=== PATIENT | female | born 1930 | race Caucasian/White ===

== ENCOUNTER 2017-11-24 10:12 | Inpatient (IN) | payer MEDICARE, OTHER, MEDICAID ==
[2017-11-24] MEDS: Sodium Chloride 0.9% 1,000 ML IV ONE ×2 (10:20→11:11)
[2017-11-24] MEDS ORDERED: Piperacillin/Tazobactam 3.375 GM in Sodium Chloride 0.9% 100 ML IV ONE (11:41)
[2017-11-24 11:50] LABS: CHLORIDE,CL 109 mmol/L (98-107); SODIUM,NA 145 mmol/L (136-145)
[2017-11-24] MEDS ORDERED: Piperacillin/Tazobactam 3.375 GM in Sodium Chloride 0.9% 100 ML IV SCH (13:00)
[2017-11-24] MEDS ORDERED: Sodium Chloride 0.9% 1,000 ML IV SCH (13:15)
[2017-11-24] MEDS ORDERED: Take Home: Albuterol 6.7 GM Inhaler, 1 Inhaler Pack INH PRN (14:07)
[2017-11-24] MEDS ORDERED: Acetaminophen 325 MG Tab PO PRN (14:07)
[2017-11-24] MEDS ORDERED: Albuterol 0.083% 2.5 MG/3 ML Neb Soln NEB PRN (14:32)
--- NOTE | 2017-11-24 15:59 | EDM.PDOC ---
ED HPI GENERAL MEDICAL PROBLEM - General Chief Complaint: Respiratory Problem Stated Complaint: ER Time Seen by Provider: 11/24/17 10:20 Source of Information: Reports: Patient, Fpc Records History Limitations: Reports: Respiratory Distress - History of Present Illness INITIAL COMMENTS - FREE TEXT/NARRATIVE: Pt. has been experiencing respiratory distress over the weekend, with symptoms worsening today. Today, pt. was significantly more short of breath and hypoxic with O2 sats in the 70s. She has also been less responsive today as well. Oral intake of food and fluids has been poor. [facility] contacted Dr. Verdin this morning who advised pt. be brought into the ER for eval. Onset Date: 11/20/17 Duration: Constant. No: Getting Worse Location: Reports: Chest Severity: Severe Improves with: Reports: Rest Associated Symptoms: Reports: Shortness of Breath Treatments MEDICAL RESIDENT: Reports: Cold Therapy - Related Data Allergies Allergy/AdvReac Type Severity Reaction Status Date / Time hydrocodone Allergy Cannot Verified 11/24/17 12:33 Remember ibuprofen Allergy Cannot Verified 11/24/17 12:33 Remember iodine Allergy Cannot Verified 11/24/17 12:33 Remember iron Allergy Cannot Verified 11/24/17 12:33 Remember latex Allergy Itching Verified 11/24/17 12:33 shellfish derived Allergy Cannot Verified 11/24/17 14:56 Remember tramadol Allergy Cannot Verified 11/24/17 12:33 Remember warfarin sodium Allergy Cannot Verified 11/24/17 12:33 [From Coumadin] Remember bitartrate Allergy Cannot Uncoded 05/28/15 14:31 Remember contrast dyd Allergy Cannot Uncoded 05/28/15 14:31 Remember Home Meds: Home Meds Acetaminophen [Tylenol] 650 mg PO BID 05/28/15 [History] Albuterol [Proair HFA] 2 puff IH Q4HR PRN 05/28/15 [History] Bisacodyl [Ducodyl] 5 mg PO DAILY PRN 05/28/15 [History] Calcium Carbonate [Tums] 500 mg PO Q8H PRN 05/28/15 [History] Carbidopa/Levodopa [Carbidopa-Levodopa 25-250] 1 tab PO DAILY 05/28/15 [History] Carbidopa/Levodopa [Carbidopa-Levodopa 25-250] 1.5 tab PO TID 05/28/15 [History] Gabapentin [Neurontin] 200 mg PO DAILY 05/28/15 [History] Gabapentin [Neurontin] 300 mg PO BEDTIME 05/28/15 [History] L.acidoph,Paracasei, B.lactis [Probiotic] 1 cap PO DAILY 05/28/15 [History] Losartan Potassium 100 mg PO DAILY 05/28/15 [History] Metoprolol Tartrate 25 mg PO BID 05/28/15 [History] Potassium Chloride 8 meq PO DAILY 05/28/15 [History] Pramipexole [Mirapex] 0.5 mg PO BEDTIME 05/28/15 [History] Sennosides/Docusate Sodium [Senna S Tablet] 2 tab PO DAILY 05/28/15 [History] amLODIPine [Norvasc] 10 mg PO DAILY 05/28/15 [History] Ondansetron [Zofran ODT] 4 mg PO Q8H PRN 11/20/16 [History] risperiDONE [Risperdal] 0.125 mg PO DAILY 11/20/16 [History] Acetaminophen [Non-Aspirin] 650 mg PO Q4H PRN 11/24/17 [History] Carboxymethyl/Gly/Poly80/Pf [Refresh Optive Advanced Drops] 1 drop EYEBOTH TID 11/24/17 [History] Cholecalciferol (Vitamin D3) [Vitamin D3] 2,000 unit PO DAILY 11/24/17 [History] Cyanocobalamin (Vitamin B-12) [Cyanocobalamin Injection] 1,000 mcg IM Q30D 11/24 [History] Escitalopram Oxalate 10 mg PO DAILY 11/24/17 [History] Furosemide 80 mg PO DAILY 11/24/17 [History] Loperamide [Imodium] 2 mg PO ASDIRECTED 11/24/17 [History] Menthol [Zim's Max-Freeze] 1 applic TOP Q8H PRN 11/24/17 [History] Mirabegron [Myrbetriq] 25 mg PO DAILY 11/24/17 [History] Mirtazapine [Remeron] 15 mg PO BEDTIME 11/24/17 [History] Nystatin 1 applic TOP Q12H PRN 11/24/17 [History] OLANZapine [ZyPREXA] 5 mg PO DAILY 11/24/17 [History] Omeprazole Magnesium [Prilosec Otc] 20 mg PO DAILY 11/24/17 [History] fentaNYL [Duragesic] 12 mcg TRDERM Q72H 11/24/17 [History] Past Medical History HEENT History: Reports: Macular Degeneration Cardiovascular History: Reports: High Cholesterol, Hypertension Respiratory History: Reports: Asthma Gastrointestinal History: Reports: Chronic Constipation Genitourinary History: Reports: Urinary Incontinence, Other (See Below) Other Genitourinary History: urgency Other OB/BYN History: had ovaries removed Musculoskeletal History: Reports: Osteoarthritis, Other (See Below) Other Musculoskeletal History: weakness,restless legs Neurological History: Reports: Parkinson's Psychiatric History: Reports: Anxiety, Dementia, Depression, Psychosis Hematologic History: Reports: B12 Deficiency - Past Surgical History HEENT Surgical History: Reports: None Social & Family History - Tobacco Use Smoking Status *Q: Never Smoker Second Hand Smoke Exposure: No - Recreational Drug Use Recreational Drug Use: No ED ROS GENERAL - Review of Systems Review Of Systems: See Below Constitutional: Reports: Malaise, Fatigue HEENT: Reports: No Symptoms Respiratory: Reports: Shortness of Breath, Wheezing, Cough Cardiovascular: Reports: Dyspnea on Exertion Endocrine: Reports: No Symptoms GI/Abdominal: Reports: No Symptoms : Reports: No Symptoms Musculoskeletal: Reports: No Symptoms Skin: Reports: No Symptoms Neurological: Reports: Weakness Psychiatric: Reports: No Symptoms Hematologic/Lymphatic: Reports: No Symptoms Immunologic: Reports: No Symptoms ED EXAM, GENERAL - Physical Exam Exam: See Below Exam Limited By: No Limitations General Appearance: Alert, Anxious, Moderate Distress Eye Exam: Bilateral Eye: EOMI, Normal Fundi, Normal Inspection Ears: Normal External Exam, Normal Canal Head: Atraumatic, Normocephalic Neck: Normal Inspection, Supple, Non-Tender Respiratory/Chest: Respiratory Distress, Decreased Breath Sounds, Rales, Wheezing Cardiovascular: Normal Peripheral Pulses, Regular Rate, Rhythm Peripheral Pulses: 2+: Radial (L), Radial (R) GI/Abdominal: Normal Bowel Sounds, Soft, Non-Tender, No Organomegaly (Female) Exam: Deferred Rectal (Female) Exam: Deferred Back Exam: Normal Inspection, Full Range of Motion Extremities: Normal Inspection, Normal Range of Motion, Non-Tender, No Pedal Edema, Normal Capillary Refill Neurological: CN II-XII Intact, Confused, Disoriented, Slow to Respond Psychiatric: Normal Affect, Normal Mood Skin Exam: Warm, Dry, Intact, Normal Color Course - Vital Signs Last Recorded V/S: Last Vital Signs Temp 37.9 C 11/24/17 14:18 Pulse 88 11/24/17 14:18 Resp 46 H 11/24/17 14:18 BP 111/54 L 11/24/17 14:18 Pulse Ox 92 L 11/24/17 14:18 - Orders/Labs/Meds Orders: Active Orders 24 hr Category Date Time Status EKG Documentation Completion [RC] STAT Care 11/24/17 10:33 Ordered EKG Documentation Completion [RC] STAT Care 11/24/17 10:34 Ordered Chest 1V Frontal [CR] Stat Exams 11/24/17 10:33 Taken CULTURE BLOOD [BC] Stat Lab 11/24/17 10:50 Received CULTURE BLOOD [BC] Stat Lab 11/24/17 11:05 Received Sodium Chloride 0.9% [Saline Flush] Med 11/24/17 10:34 Active 10 ml FLUSH ASDIRECTED PRN Blood Culture x2 Reflex Set [OM.PC] Stat Oth 11/24/17 10:34 Ordered Peripheral IV Insertion Adult [OM.PC] Routine Oth 11/24/17 10:34 Ordered Medication Orders Acetaminophen (Tylenol) 650 mg PO Q4H PRN PRN Reason: Pain Albuterol (Proventil Neb Soln) 2.5 mg NEB Q4H PRN PRN Reason: Shortness of Breath Artificial Tears (Tears Naturale Free) 1 each EYEBOTH TID BENNETT Carbidopa/Levodopa (Sinemet 25-250 Mg) 1 tab PO DAILY BENNETT Carbidopa/Levodopa (Sinemet 25-250 Mg) 1.5 tab PO TID BENNETT Citalopram Hydrobromide (Celexa) 20 mg PO DAILY BENNETT Sodium Chloride (Normal Saline) 1,000 mls @ 100 mls/hr IV ASDIRECTED BENNETT Piperacillin Sod/Tazobactam (Sod 3.375 gm/ Sodium Chloride) 100 mls @ 25 mls/ hr IV Q8H BENNETT Sodium Chloride (Saline Flush) 10 ml FLUSH ASDIRECTED PRN PRN Reason: Keep Vein Open Labs: Laboratory Tests 11/24/17 11/24/17 11/24/17 Range/Units 10:50 10:50 10:50 WBC 14.5 H (4.0-10.0) x10^3/uL RBC 3.31 L (4.00-5.50) x10^6/uL Hgb 9.9 L (12.0-16.0) g/dL Hct 31.8 L (33.0-47.0) % MCV 96.1 H (78.0-93.0) fL MCH 29.9 (26.0-32.0) pg MCHC 31.1 L (32.0-36.0) g/dL RDW Coeff of Greg 15.0 (10.0-15.0) % Plt Count 272 (130-400) x10^3/uL Add Manual Diff Yes Neutrophils % (Manual) 68 (50-80) % Band Neutrophils % 27 H (0-6) % Atypical Lymphs % 3 H (0) % Monocytes % (Manual) 2 (2-11) % Platelet Estimate Adequate Hypochromasia 1+ slight H Poikilocytosis 1+ slight H Anisocytosis 1+ slight H PT 9.8 (9.8-11.8) SEC INR 0.9 L (2.0-3.5) Sodium 145 (136-145) mmol/L Potassium 4.7 (3.5-5.1) mmol/L Chloride 109 H (98-107) mmol/L Carbon Dioxide 28 (21-32) mmol/L BUN 39 H (7-18) mg/dL Creatinine 1.2 H (0.55-1.02) mg/dL Est Cr Clr Drug Dosing TNP Estimated GFR (MDRD) 43 Glucose 129 H (74-106) mg/dL Lactic Acid (0.4-2.0) mmol/L Calcium 8.1 L (8.5-10.1) mg/dL Corrected Calcium 9.78 (8.5-10.1) mg/dL Phosphorus 4.1 (2.6-4.7) mg/dL Magnesium 2.1 (1.8-2.4) mg/dL Total Bilirubin 0.4 (0.2-1.0) mg/dL AST 13 L (15-37) U/L ALT < 6 L (14-59) U/L Alkaline Phosphatase 86 (46-116) U/L Troponin I Cancelled C-Reactive Protein 51.9 H (<=0.9) mg/dL NT-Pro-B Natriuret Pep 2086 H (<=450) pg/mL Total Protein 6.6 (6.4-8.2) g/dL Albumin 1.9 L (3.4-5.0) g/dL Globulin 4.7 Albumin/Globulin Ratio 0.40 // Range/Units 10:50 WBC (4.0-10.0) x10^3/uL RBC (4.00-5.50) x10^6/uL Hgb (12.0-16.0) g/dL Hct (33.0-47.0) % MCV (78.0-93.0) fL MCH (26.0-32.0) pg MCHC (32.0-36.0) g/dL RDW Coeff of Greg (10.0-15.0) % Plt Count (130-400) x10^3/uL Add Manual Diff Neutrophils % (Manual) (50-80) % Band Neutrophils % (0-6) % Atypical Lymphs % (0) % Monocytes % (Manual) (2-11) % Platelet Estimate Hypochromasia Poikilocytosis Anisocytosis PT (9.8-11.8) SEC INR (2.0-3.5) Sodium (136-145) mmol/L Potassium (3.5-5.1) mmol/L Chloride (98-107) mmol/L Carbon Dioxide (21-32) mmol/L BUN (7-18) mg/dL Creatinine (0.55-1.02) mg/dL Est Cr Clr Drug Dosing Estimated GFR (MDRD) Glucose (74-106) mg/dL Lactic Acid 1.1 (0.4-2.0) mmol/L Calcium (8.5-10.1) mg/dL Corrected Calcium (8.5-10.1) mg/dL Phosphorus (2.6-4.7) mg/dL Magnesium (1.8-2.4) mg/dL Total Bilirubin (0.2-1.0) mg/dL AST (15-37) U/L ALT (14-59) U/L Alkaline Phosphatase (46-116) U/L Troponin I C-Reactive Protein (<=0.9) mg/dL NT-Pro-B Natriuret Pep (<=450) pg/mL Total Protein (6.4-8.2) g/dL Albumin (3.4-5.0) g/dL Globulin Albumin/Globulin Ratio Meds: Medications Generic Name Dose Route Start Last Admin Trade Name Dwight PRN Reason Stop Dose Admin Acetaminophen 650 mg 11/24/17 14:07 Tylenol PO Q4H PRN Pain Albuterol 2.5 mg 11/24/17 14:32 Proventil Neb Soln NEB Q4H PRN Shortness of Breath Artificial Tears 1 each 11/24/17 20:00 Tears Naturale Free EYEBOTH TID BENNETT Carbidopa/Levodopa 1 tab 11/25/17 08:00 Sinemet 25-250 Mg PO DAILY BENNETT Carbidopa/Levodopa 1.5 tab 11/24/17 20:00 Sinemet 25-250 Mg PO TID BENNETT Citalopram Hydrobromide 20 mg 11/25/17 08:00 Celexa PO DAILY BENNETT Sodium Chloride 1,000 mls @ 100 mls/hr 11/24/17 13:15 Normal Saline IV ASDIRECTED BENNETT Piperacillin Sod/Tazobactam 100 mls @ 25 mls/hr 11/24/17 20:00 Sod 3.375 gm/ Sodium Chloride IV Q8H BENNETT Sodium Chloride 10 ml 11/24/17 10:34 Saline Flush FLUSH ASDIRECTED PRN Keep Vein Open Discontinued Medications Generic Name Dose Route Start Last Admin Trade Name Dwight PRN Reason Stop Dose Admin Sodium Chloride 1,000 mls @ 1,000 mls/hr 11/24/17 10:35 11/24/17 11:11 Normal Saline IV 11/24/17 11:34 1,000 mls/hr .BOLUS ONE Administration Piperacillin Sod/Tazobactam 100 mls @ 200 mls/hr 11/24/17 11:41 11/24/17 11: 42 Sod 3.375 gm/ Sodium Chloride IV 11/24/17 12:10 200 mls/hr ONETIME ONE Administration Piperacillin Sod/Tazobactam 100 mls @ 200 mls/hr 11/24/17 13:00 11/24/17 13: 28 Sod 3.375 gm/ Sodium Chloride IV Not Given Q8H BENNETT Departure - Departure Time of Disposition: 11:50 Disposition: Admitted As Inpatient 67 Condition: Undetermined Clinical Impression: Pneumonia - Discharge Information - My Orders Last 24 Hours: My Active Orders 11/24/17 10:33 EKG Documentation Completion [RC] STAT Chest 1V Frontal [CR] Stat 11/24/17 10:34 EKG Documentation Completion [RC] STAT Sodium Chloride 0.9% [Saline Flush] 10 ml FLUSH ASDIRECTED PRN Blood Culture x2 Reflex Set [OM.PC] Stat Peripheral IV Insertion Adult [OM.PC] Routine 11/24/17 10:50 CULTURE BLOOD [BC] Stat 11/24/17 11:05 CULTURE BLOOD [BC] Stat - Assessment/Plan Last 24 Hours: My Active Orders 11/24/17 10:33 EKG Documentation Completion [RC] STAT Chest 1V Frontal [CR] Stat 11/24/17 10:34 EKG Documentation Completion [RC] STAT Sodium Chloride 0.9% [Saline Flush] 10 ml FLUSH ASDIRECTED PRN Blood Culture x2 Reflex Set [OM.PC] Stat Peripheral IV Insertion Adult [OM.PC] Routine 11/24/17 10:50 CULTURE BLOOD [BC] Stat 11/24/17 11:05 CULTURE BLOOD [BC] Stat
[2017-11-24] MEDS: Carbidopa/Levodopa 25-250 MG Tab PO SCH (19:58)
[2017-11-24] MEDS: Piperacillin/Tazobactam 3.375 GM in Sodium Chloride 0.9% 100 ML IV SCH (19:59)
[2017-11-24] MEDS: Dextran 70/Hypromellose/PF Ophth Soln 0.9 ML UD EYEBOTH SCH (22:41)
[2017-11-25] MEDS: Piperacillin/Tazobactam 3.375 GM in Sodium Chloride 0.9% 100 ML IV SCH ×3 (04:33→17:22)
[2017-11-25] MEDS: LORazepam 0.5 MG Tab PO PRN ×2 (04:34→19:49)
[2017-11-25] MEDS ORDERED: cefTRIAXone 1 GM Vial IM ONE (08:26)
[2017-11-25] MEDS ORDERED: Sodium Chloride 0.9% 10 ML Syringe FLUSH PRN (08:40)
--- NOTE | 2017-11-25 09:10 | HP ---
CHIEF COMPLAINT: Weakness, fatigue, and fevers. HISTORY OF PRESENT ILLNESS: This is an 87-year-old female who started with some mild cough last week and had been coughing more over the weekend and having low- grade temps. She was scheduled to come to the clinic this morning for a visit. Unfortunately, her condition worsened and she required to be seen in the ER, presented there with a 101.2 temp, pulse of 102, and respiratory rate of 28, O2 saturations were 81% documented and even reported to be as low as 70% on room air at the [facility]. They did place her on oxygen. She was up to 15 L at one point, was saturating 97%. She was able to answer question. She denies that she has any trouble with swallowing or eating. She is on quite a few psychotropic medications prescribed by Psychiatry. Dr. Azul, had documented that she does not always take them. She has no known history of heart failure. She does have a chronic murmur. She has Alzheimer disease and has been in the [facility] the last 1-2 years. She is also on fentanyl low-dose 12 mcg daily for chronic arthritis pains. Otherwise, she has not been coughing up anything by her report. She does feel short of breath. She has no underlying lung disease like asthma. PAST MEDICAL HISTORY: Reviewed, anxiety and depression, Parkinson disease, essential hypertension, knee arthritis, Alzheimer disease, urinary urgency on Myrbetriq, chronic systolic murmur probably aortic stenosis, hypokalemia, vitamin B12 deficiency, generalized osteoarthritis, previous compression fracture of the spine in 2016. PAST MEDICAL HISTORY: Otherwise, surgically the patient has had cataract surgery, right knee replacement and partial colectomy for colon cancer as in her record as well forearm fracture in 1982. FAMILY HISTORY: Father at age 60 in a motor vehicle accident. Mother at age 45 of asthma. She has 4 children, sounds like a daughter of an [place]. She has a son in [place], who I spoke with. SOCIAL HISTORY: She lives in [facility]. She used to live in [place]. Her about 3 years ago. ALLERGIES: Contrast dye, fish, hydrocodone, ibuprofen, iodine, iron, latex, tramadol, and warfarin. MEDICATIONS: Her medication list is reviewed and quite extensive. Please see the [facility] list. It should be noted that her fentanyl patch is 12.5 mcg daily, otherwise. REVIEW OF SYSTEMS: General: The patient has no recent weight loss. She has had recent fever and chills. HEENT: No new vision changes. No sore throat. Musculoskeletal: No new muscle aches. No back pain. She does have chronic arthritis pain. Cardiac: No new palpitations. No chest pain. Respiratory: Cough, shortness of breath as noted in HPI. : No dysuria. GI: No abdominal pain, nausea, vomiting, or diarrhea. Allergy and immunologic: She does not have chronic infections. Psych: She has underlying depression and anxiety. No changes, no behaviors. Otherwise, all systems reviewed and found to be negative unless otherwise stated. PHYSICAL EXAMINATION: Vital signs: Currently on her admission, the patient's weight is 44.4 kg, temp is 99.8, pulse 92, blood pressure 118/44, respiratory rate 28, O2 93 on 8 L non- rebreather. General: She does not appear to be in any acute distress. She appears pale. She is resting comfortably in bed. She is actually not using any accessory muscles. Heart: Regular rate and rhythm with systolic murmur noted. Lungs: Sounds are decreased over the bottom 2/3rds of the right lung with rhonchi noted. Left lung is clear. No wheezing appreciated. Mental Status: She is alert. She seems to be aware. She is at the hospital. She is aware that I am not her regular doctor, Dr. Azul. Abdomen: Positive bowel sounds. Soft, nondistended. Extremities: Warm and dry. No edema, otherwise. DIAGNOSTIC DATA: EKG is reviewed, sinus rhythm noted. There is some nonspecific ST changes, but no severe depression. These are mainly in the leads V1 and lead 3. Otherwise, chest x-ray shows a significant right middle and lower lobe infiltrate, possible effusion, but probably more infiltrate. LABORATORY DATA: Lab work shows white count 14.5, hemoglobin 9.9, which was down from previous of 11, platelets 272, 27% bands. INR 0.9. Sodium 145, potassium 4.7, chloride 109, bicarb 28, BUN 39, creatinine 1.2, which is up from baseline, glucose 129. lactate 1.1, calcium 8.1, AST 13, ALT less than 6. Troponin negative. CRP 51.9. ProBNP 2086 and albumin 1.9. ASSESSMENT: 1. Acute hypoxic respiratory failure secondary to a community-acquired pneumonia right middle and lower lobe. Concern would be for aspiration given the location and that this is a [facility] patient, however, no previous history of trouble swallowing. 2. Community-acquired pneumonia with concern for aspiration. Blood cultures and sputum cultures have been sent. We will get a speech therapy consult as she did fail her bedside swallow eval. 3. 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 4. Anxiety and depression. We will hold most of her psychotropic medications due to trouble swallowing. 5. Parkinson's. We will try giving her Sinemet. 6. DVT prophylaxis. I am going to hold off due to anemia. We will repeat blood work in the morning. 7. Anemia. 8. Chronic pain due to arthritis. We will hold her fentanyl patch until she is more awake and alert. 9. Severe malnutrition with albumin of 1.9. She reports eating and drinking better prior to this event. 10.Mild renal insufficiency. 11.Palliative care. PLAN: At this point, the patient is admitted to acute cares. We will keep her on O2 through a non-rebreather mask currently at 8 L and wean down to a nasal cannula as able. Discussed with the ER provider as well as her son. We are going to hold off on doing further aggressive measures like ABGs or BiPAP. If she does appear to be comfortable, currently in no respiratory distress, we will treat her with IV antibiotics of Zosyn 3.375 IV every 8 hours as directed by pharmacy. I will continue her on normal saline with repeat lab work in the morning. I did discuss that this is a critically ill patient, but the patient's wishes are to not be resuscitated or be in the ICU with intubation, therefore we will not transfer her for further cares. We will try the best supportive care and really give it the next 12 to 24 hours to see how she does. We will have nebulizers available for her breathing if needed. Otherwise, she is a code level 3. Otherwise, we will await culture results, MRSA screen has been sent, if positive, I will add vanco. We will do continuous pulse oximetry. MKA: 11/24/2017 17:09:55 MODL: 11/24/2017 21:54:43 /[id number]
[2017-11-25] MEDS: Citalopram 20 MG Tab PO SCH (09:41)
[2017-11-25] MEDS: Carbidopa/Levodopa 25-250 MG Tab PO SCH ×4 (09:41→19:49)
[2017-11-25] MEDS: Dextran 70/Hypromellose/PF Ophth Soln 0.9 ML UD EYEBOTH SCH ×3 (09:42→19:49)
[2017-11-25] MEDS: risperiDONE 0.25 MG Tab PO SCH (09:43)
[2017-11-25] MEDS: OLANZapine 5 MG Tab PO SCH (09:44)
[2017-11-25] MEDS: fentaNYL 12 MCG/HR Transdermal Patch TRDERM SCH (09:56)
--- NOTE | 2017-11-25 10:00 | PN ---
Progress Note for CARLY DESOUZA Date: 11/25/2017 Room #: VM.217 SUBJECTIVE: This is an 87-year-old, hospital day #2 for a right middle and lower lobe pneumonia. The patient did pull out her IV during the night, so missed her 4:00 a.m. dose of Solu-Medrol. She got quite agitated. They tried to give her some Ativan, but they are not sure if she even took it. She otherwise has been hypoxic from pulling off her oxygen, around 80% on room air, but denies any shortness of breath, cough, or chest pain this morning. She would like to try eating. She failed her bedside swallow evaluation yesterday with the nurse, but she was quite somnolent. Most of her medications were held, but she was able to take her oral Sinemet last night. She has now been afebrile since admission. She did have a 100.2 yesterday at 2:00 p.m. and a 101.2 at 10:00 a.m. in the ER. OBJECTIVE: VITAL SIGNS: This morning, she is 98.6; pulse 91; blood pressure 138/52; respiratory rate 22; and O2 of 93% on 9 L previous to taking off her oxygen, then she was 89% on 6 L of high-flow. GENERAL: She is in no acute distress. She appears pale, but she is resting comfortably in bed. She is not yelling out or overly agitated. HEART: Regular rate and rhythm with systolic murmur. LUNGS: Lung sounds decreased with crackles over the right base, left lung is clear. ABDOMEN: Nondistended, nontender. EXTREMITIES: Warm and dry. No edema. MENTAL STATUS: She is alert. She is calling out for Dr. Azul, who is her regular doctor earlier this morning when she refused lab work. She wants to get out of here. She mentioned the clinic. She was redirected that she is in the hospital. LABORATORY DATA: Lab work again was unable to be collected today due to patient cooperation. ASSESSMENT: 1. Acute hypoxic respiratory failure secondary to a community-acquired pneumonia, possibly aspiration. 2. Right middle and right lower lobe pneumonia. Cultures thus far are negative. She has been on IV Zosyn for aspiration. We will try to get an IV and if unable, we will give her some IM Rocephin. If that is the case, we will try for oral Zithromax as well. 3. Dementia with acute delirium. We will continue supportive measures. We will get her medications restarted, which include Zyprexa and Risperdal. 4. Chronic pain. She is on the fentanyl patch. It will be 12 mcg every 3 days. 5. Essential hypertension. Blood pressures are controlled. We are holding her antihypertensives. PLAN: At this point, the patient will continue acute cares. The primary objective today is to get the IV back in and get her going on antibiotics. We have also ordered a Speech consult, and she will be allowed to eat now that she is more alert and cooperative. We will adjust diet accordingly. We will get her oral pills going, and if she is cooperative, we will try to draw lab work later today. Otherwise, we will do it tomorrow. We will continue oxygen through the high-flow. She seems to tolerate that better. For DVT prophylaxis, I will put her in some SCDs. Lovenox is not ordered due to concern for anemia, but no signs of bleeding were identified. Otherwise, the patient will be discontinued on IV fluids when she is eating and drinking better. MKA: 11/25/2017 08:39:51 MODL: 11/25/2017 09:06:54 /[id number]
[2017-11-25 14:05] LABS: CHLORIDE,CL 113 mmol/L (98-107); SODIUM,NA 149 mmol/L (136-145)
[2017-11-25] MEDS: Enoxaparin 40 MG/0.4 ML Syringe SUBCUT SCH (17:21)
[2017-11-25] MEDS: Gabapentin 300 MG Cap PO SCH (19:49)
[2017-11-25] MEDS: Mirtazapine 15 MG Tab PO SCH (19:49)
[2017-11-26] MEDS: Piperacillin/Tazobactam 3.375 GM in Sodium Chloride 0.9% 100 ML IV SCH ×3 (02:41→17:04)
[2017-11-26] MEDS: Sodium Chloride 0.9% 10 ML Syringe FLUSH PRN (02:41)
[2017-11-26 08:04] LABS: CHLORIDE,CL 115 mmol/L (98-107); SODIUM,NA 152 mmol/L (136-145)
[2017-11-26] MEDS: Sodium Chloride 0.45% 1,000 ML IV SCH ×2 (09:10→18:59)
[2017-11-26] MEDS: Citalopram 20 MG Tab PO SCH (09:11)
[2017-11-26] MEDS: Carbidopa/Levodopa 25-250 MG Tab PO SCH ×4 (09:11→19:37)
[2017-11-26] MEDS: Enoxaparin 40 MG/0.4 ML Syringe SUBCUT SCH (09:12)
[2017-11-26] MEDS: Gabapentin 100 MG Cap PO SCH (09:12)
[2017-11-26] MEDS: risperiDONE 0.25 MG Tab PO SCH (09:12)
[2017-11-26] MEDS: Dextran 70/Hypromellose/PF Ophth Soln 0.9 ML UD EYEBOTH SCH ×3 (09:14→19:38)
[2017-11-26] MEDS: OLANZapine 5 MG Tab PO SCH (09:15)
--- NOTE | 2017-11-26 09:50 | PN ---
Progress Note for CARLY DESOUZA Date: 11/26/2017 Room #: VM.217 SUBJECTIVE: This is an 87-year-old, hospital day #3. The patient was admitted with a severe right middle and lower lobe pneumonia. Cultures have so far been negative. She had no MRSA. She has been on Zosyn. She did go without it due to losing her IV during the night on early Thursday morning, but it was put back in by nursing. She did spike a low-grade temperature on 100.3 at 6 p.m. last night. She was eating at least 50% of her meals. She was drinking well yesterday. She did not do well with her swallow eval recommending more thickened liquids, but the patient is her own decision maker and I did discuss with her son and he states he lets her make her decisions and she wants to continue with regular liquids. She also was quite hypernatremic, so we elected to monitor that and keep her IV protected for the IV antibiotics. This morning, she is resting comfortably. She got an Ativan last evening around 7.00 p.m., but nothing else during the night. She has not received her psychotropic medications yet. Her fentanyl patch was just changed yesterday. OBJECTIVE: Vital Signs: Her temperature is 99.2, pulse 84, blood pressure 147/64, respiratory rate 40, O2 94 on 6 L. General: She is in no acute distress. She is resting comfortably. Heart: Regular rate and rhythm with murmur. Lungs: Lung sounds are decreased over the right lung. She has crackles in the right base. Crackles in the left base are faint. Abdomen: Nondistended, nontender. Extremities: Warm and dry. No edema. Mental Status: She is somnolent, but she wakes to my voice, but is not answering any questions appropriately this morning. LAB WORK: Reviewed. White count improved to 14.3, hemoglobin 9, platelets 319. Sodium 152, potassium 4.2, chloride 115, bicarb 29, BUN 23, creatinine 0.7, calcium 8.1. ASSESSMENT AND PLAN: 1. Acute hypoxic respiratory failure due to a right middle and right lower lobe pneumonia, probably aspiration, although she had no problems with aspiration prior to this stay. 2. Right middle lobe and right lower lobe pneumonia. Thus far, culture is negative. She will continue IV Zosyn. 3. Dementia with acute delirium. This seems to have improved after we have re- initiated her home medications of Zyprexa and Risperdal. 4. Chronic pain. She is on the fentanyl patch. If she continues to be somnolent today, we will remove it. 5. Essential hypertension. Blood pressure under good control. 6. Hypernatremia, possibly due to poor oral intake with lack of fluids when she lost her IV. We will repeat a sodium in the morning and start her on some half-normal saline today 100 mL/h. We will continue having her work with Speech. We will consider a swallow eval when she is improved clinically. I think her oxygenation has improved. Then, at this point, we are going to hold off on any repeat x-rays. MKA: 11/26/2017 08:32:43 MODL: 11/26/2017 09:22:32 /[id number]
[2017-11-26] MEDS: Gabapentin 300 MG Cap PO SCH (19:37)
[2017-11-26] MEDS: Mirtazapine 15 MG Tab PO SCH (19:38)
[2017-11-26] MEDS: LORazepam 0.5 MG Tab PO PRN (19:39)
[2017-11-27] MEDS: Piperacillin/Tazobactam 3.375 GM in Sodium Chloride 0.9% 100 ML IV SCH ×3 (01:00→17:58)
[2017-11-27] MEDS: Sodium Chloride 0.45% 1,000 ML IV SCH ×2 (04:51→21:23)
[2017-11-27 07:39] LABS: CHLORIDE,CL 110 mmol/L (98-107); SODIUM,NA 146 mmol/L (136-145)
[2017-11-27] MEDS: Enoxaparin 40 MG/0.4 ML Syringe SUBCUT SCH (09:04)
[2017-11-27] MEDS: Citalopram 20 MG Tab PO SCH (09:06)
[2017-11-27] MEDS: OLANZapine 5 MG Tab PO SCH (09:06)
[2017-11-27] MEDS: Gabapentin 100 MG Cap PO SCH (09:06)
[2017-11-27] MEDS: Carbidopa/Levodopa 25-250 MG Tab PO SCH ×4 (09:07→21:09)
[2017-11-27] MEDS: risperiDONE 0.25 MG Tab PO SCH (09:08)
[2017-11-27] MEDS: Dextran 70/Hypromellose/PF Ophth Soln 0.9 ML UD EYEBOTH SCH ×3 (09:08→21:09)
--- NOTE | 2017-11-27 10:10 | PN ---
Progress Note for CARLY DESOUZA Date: 11/27/2017 Room #: VM.217 SUBJECTIVE: This is hospital day #4 on an 87-year-old admitted with a severe right middle lobe and right lower lobe pneumonia. So far, cultures have been negative. Unfortunately, she continues to be quite hypoxic. She only got up to 92 during the night and was down into the 70s on the nasal cannula 6 L, which she was doing okay with yesterday. She was then placed on 10 L non-rebreather. She was moved up to the upper 90% with that. She became less tachypneic. She was denying any chest pain. She has been on IV Zosyn since admission. She is still coughing and even doing some barking per nursing. She denies any abdominal pain. She is politely confused. She was talking about getting 6 shots in her arm at another hospital. OBJECTIVE: Vital Signs: Her temperature is 99.2, pulse 66, blood pressure 154/60, respiratory rate 36, and O2 95% on 6 L. General: She is in no acute distress. She is pale, but resting comfortably in bed. She has slight tachypnea. Heart: Regular rate and rhythm. Lungs: Lungs sounds are decreased over the right lung with rhonchi and crackles two-thirds of the way up. Her left lung is clear. Abdomen: Soft and nontender. Extremities: Warm and dry no edema. Mental Status: She is alert. She knows she is in a hospital, but not where. She is unaware of the date. LABORATORY DATA: Lab work today does show improvement in her white count down to 14.1, hemoglobin up to 9.9, and platelets at 332. Improvement in sodium to 146, potassium 4, chloride 110, bicarb 30, BUN 12, creatinine 0.6, and calcium 8.3. IMAGING: Repeat chest x-ray did continue to show significant right middle and lower lobe infiltrate. There did not appear to be a large pleural effusion. ASSESSMENT: 1. Acute hypoxic respiratory failure due to a right middle and right lower lobe pneumonia. Concern is for aspiration. 2. Right middle lobe and right lower lobe pneumonia. Thus far, cultures negative. She will continue IV Zosyn. She is taking some of her pills orally, but not consistently. So, I prefer to continue covering with IV antibiotics. She is afebrile, so I will not escalate therapies. 3. Dementia with delirium. She seems to do much better during the day. She does worse at night. 4. Chronic pain. She is on a fentanyl patch. This was just changed. She has not been overly somnolent, so we will leave it in place, but if she gets overly sleepy, we will remove it. 5. Essential hypertension. Blood pressure is elevated. We will restart her metoprolol today. 6. Hypernatremia due to poor oral intake. She absolutely refuses to do thickened liquids. We did have a discussion regarding comfort measures and end of life. She said, "I think you are joking," but she overall was more open to the idea of being comfortable than having to drink thickened liquids. She is consuming only about 50% of meals. PLAN: The patient will continue acute cares with IV Zosyn. She is not stable enough for transfer back to the [place] [facility] today. I did call and leave a message to update her son, Wilfrido, at [phone]. We will have further discussion about potential for comfort measures if her condition fails to improve or declines. At the beginning of her admission, we did discuss no transfer to a higher level of care as she would not want intubation and, therefore, we will continue current treatments here in [place] to honor their wishes. She is on DVT prophylaxis with Lovenox. We will turn down IV fluids to half-normal saline 50 mL and recheck lab work tomorrow. Son and daughter updated, grandson also updated in the room this evening when she was up and more alert. CHEPE: 11/27/2017 09:03:40 MODL: 11/27/2017 09:23:29 /[id number]
[2017-11-27] MEDS: Metoprolol Tartrate 25 MG Tab PO SCH (21:08)
[2017-11-27] MEDS: Mirtazapine 15 MG Tab PO SCH (21:09)
[2017-11-27] MEDS: Gabapentin 300 MG Cap PO SCH (21:09)
[2017-11-28] MEDS: Piperacillin/Tazobactam 3.375 GM in Sodium Chloride 0.9% 100 ML IV SCH ×3 (02:56→18:05)
[2017-11-28] MEDS: Carbidopa/Levodopa 25-250 MG Tab PO SCH ×5 (08:34→20:09)
[2017-11-28] MEDS: Metoprolol Tartrate 25 MG Tab PO SCH ×2 (08:34→20:08)
[2017-11-28] MEDS: risperiDONE 0.25 MG Tab PO SCH (08:35)
[2017-11-28] MEDS: OLANZapine 5 MG Tab PO SCH (08:35)
[2017-11-28] MEDS: Gabapentin 100 MG Cap PO SCH (08:36)
[2017-11-28] MEDS: Citalopram 20 MG Tab PO SCH (08:36)
[2017-11-28] MEDS: Enoxaparin 40 MG/0.4 ML Syringe SUBCUT SCH (08:36)
[2017-11-28] MEDS ORDERED: Furosemide 20 MG/2 ML VIAL IV ONE (08:59)
[2017-11-28 09:32] LABS: CHLORIDE,CL 108 mmol/L (98-107); SODIUM,NA 145 mmol/L (136-145)
[2017-11-28] MEDS: Dextran 70/Hypromellose/PF Ophth Soln 0.9 ML UD EYEBOTH SCH ×3 (10:55→21:00)
[2017-11-28] MEDS: fentaNYL 12 MCG/HR Transdermal Patch TRDERM SCH ×2 (10:57→11:19)
--- NOTE | 2017-11-28 11:21 | PN ---
Progress Note for CARLY DESOUZA Date: 11/28/2017 Room #: VM.217 SUBJECTIVE: This is hospital day #5 on an 87-year-old admitted from the [place] [facility] with a severe right middle and lower lobe pneumonia with acute hypoxic respiratory failure. She does have underlying dementia, but was up and active and doing quite well prior to this. She has been afebrile now for several days, but continues to require the non-rebreather mask intermittently, especially during the night and in the morning. She has been coughing a lot and is still unable to get stuff up. She is awake and able to converse with me today. She admits that she is short of breath, but denies any pain. She is on a long-term fentanyl patch, and she did request that, that be continued. She got all of her medications in this morning, except part of her Sinemet dosing for Parkinson's. She has been on IV Zosyn. She has been eating and drinking at the best 75%, but sometimes 0-10% of meals. Sodium has been high, but has normalized today. OBJECTIVE: Vital Signs: Her temperature is 98.7, pulse 60, blood pressure 148/64, respiratory rate was 30, and O2 is 94% on 10 L. General: She is in no acute distress. She is resting in bed. She appears pale. She is mildly tachypneic. Heart: Regular rate and rhythm with murmur. Lungs: Lungs sounds decreased and no air movement over that right lung. Left lung is clear. Abdomen: Nondistended and nontender. Extremities: Warm and dry. No edema. Mental Status: She is alert and able to answer questions, yes or no. We did not go through orientation questions today. LABORATORY DATA: Lab work shows her white count 15.4, hemoglobin 10.2, and platelets 14.9. Sodium 145, potassium 4.2, chloride 108, bicarb 31, BUN 8, and calcium 8.3. ASSESSMENT: 1. Acute hypoxic respiratory failure secondary to likely an aspiration pneumonia. She has been covered with IV Zosyn. She has been afebrile on that with improving fevers and white count. 2. Right middle lobe and right lower lobe pneumonia. Cultures have been negative. She was not positive for MRSA. We will continue with the IV Zosyn now day #5, treat for at least a 7-day course, unless she transitions to comfort cares. 3. Dementia with delirium. We will continue her home medications. 4. Chronic pain. We will change her fentanyl patch today. 5. Essential hypertension. Blood pressures are elevated. Due to worsening hypoxia this morning, we did give her some IV Lasix and that seemed to help. 6. Hypernatremia due to poor oral intake. Even though she is having some aspiration, we discussed with her and her family the goals of care would not be to put in a feeding tube and she will be allowed to eat and drink what she prefers, especially things like coffee. She does not want thickened. PLAN: At this point, the patient will continue acute cares with IV Zosyn. Her son and daughter are en route and should arrive today. Her nephew is at the bedside. She seems comfortable and doing stable but, at this point, discussed with her that she may not recover from this. She seems to have a better understanding today. Yesterday, when I told her that, she said I was joking. I will continue all acute cares until family arrives and then we will discuss comfort measures. I will stop IV fluids today. We will repeat Lasix dosing as needed. We will repeat a chest x-ray as needed. It was stable yesterday with no worsening. MKA: 11/28/2017 10:37:52 MODL: 11/28/2017 11:13:13 /[id number]
[2017-11-28] MEDS: Gabapentin 300 MG Cap PO SCH (20:08)
[2017-11-28] MEDS: Mirtazapine 15 MG Tab PO SCH (20:08)
--- NOTE | 2017-11-28 21:28 | PCM.SN ---
- Free Text/Narrative Note: Nursing reports patient condition has worsened she is more anxious due to having a hard time breathing. Morphine initiated. Will change status to comfort cares. Will reassess in the AM, her son was already updated this evening that her condition could potentially deteriorate to .
[2017-11-29] MEDS: Morphine 2 MG/ML Syringe IVPUSH PRN ×5 (00:12→20:59)
[2017-11-29] MEDS: Piperacillin/Tazobactam 3.375 GM in Sodium Chloride 0.9% 100 ML IV SCH ×3 (02:56→18:57)
--- NOTE | 2017-11-29 10:33 | PN ---
Progress Note for CARLY DESOUZA Date: 11/29/2017 Room #: VM.217 SUBJECTIVE: This is hospital day #6 on an 87-year-old admitted with a severe right middle and lower lobe pneumonia, likely due to aspiration. She has been on IV Zosyn since admission. She has been afebrile. Her white count had improved, but her respiratory status has not. She is requiring an oxygen mask up to 10 L to keep her saturations over 90%. She has been down to 6 L of nasal cannula at one point, but she has been doing mostly mouth breathing, especially while sleeping last evening she got more anxious and was having more respiratory distress. She got 1 dose of IV morphine and it seemed to relax her and she slept well during the night per the nursing. Her son is at the bedside. We discussed comfort cares. We have discussed them all along. At this point, Carly said she would like her whole family to come, her friends to come, her debt recovery officer before stopping antibiotics. She has already been on them now 5 days. Otherwise, after further discussion, she was agreeable with morphine. She is still coughing, but she denies that she is having any chest pain. OBJECTIVE: Vital Signs: Her temperature 98.6, pulse 85, blood pressure 156/56, respiratory rate 32, O2 of 95% on 10 L. General: She is in no acute distress. Heart: Regularly irregular with murmur. Lungs: Respiratory effort show shallow breathing with tachypnea. Her lungs sounds are absent over the right lung, clear over the left. Abdomen: Nondistended. Nontender. Extremities: Warm and dry. No edema. Skin: Overall appears pale. ASSESSMENT AND PLAN: 1. Acute hypoxic respiratory failure secondary to a right middle lobe and right lower lobe likely aspiration pneumonia. 2. Right middle lobe and right lower lobe pneumonia due to aspiration. 3. Dementia with delirium. Mental status seems to be improved, now that she is back on her home medications. She is making decisions with her family. 4. Chronic pain. She is on the fentanyl patch. 5. Essential hypertension. She is on home medications. 6. Hypernatremia had resolved, but she is off IV fluids and we have stopped monitoring labs. 7. Palliative care. PLAN: At this point, the patient is on comfort care status, but still wishes to continue antibiotics until the rest of her family arrives. We will utilize morphine for her comfort and tachypnea. I will also have atropine available for her secretions. She will remain on acute care for treatments as this I feel is the end of her life and transferring her down to the palliative care unit in [place] would be not convenient for her or her family. Transferring her back to the [place] [facility] next week could potentially be an option or keeping on swing bed for skilled end-of-life cares. We will have to take this day by day and wait for social work to return as well as the rest of the patient's family. At this point, we will continue acute cares due to her hypoxic respiratory failure and her poor oral intake and the fact that she cannot maintain p.o. medications appropriately to continue with the oral antibiotics. I am going to discontinue her Lovenox and many of her oral medications. We will still keep some like the Sinemet for Parkinson's and her olanzapine and Neurontin to ensure no withdrawals and comfort. MKA: 11/29/2017 09:10:36 MODL: 11/29/2017 10:24:37 /[id number]
[2017-11-29] MEDS: OLANZapine 5 MG Tab PO SCH (12:04)
[2017-11-29] MEDS: Carbidopa/Levodopa 25-250 MG Tab PO SCH ×4 (12:05→20:58)
[2017-11-29] MEDS: Metoprolol Tartrate 25 MG Tab PO SCH ×2 (12:05→20:58)
[2017-11-29] MEDS ORDERED: Morphine 2 MG/ML Syringe ONE (15:17)
[2017-11-29] MEDS: Dextran 70/Hypromellose/PF Ophth Soln 0.9 ML UD EYEBOTH SCH ×2 (15:26→20:58)
[2017-11-29] MEDS: Atropine 1% Ophth Soln 5 ML BOTTLE SL PRN (15:27)
[2017-11-29] MEDS: Enoxaparin 40 MG/0.4 ML Syringe SUBCUT SCH (15:52)
[2017-11-29] MEDS: Citalopram 20 MG Tab PO SCH (15:52)
[2017-11-29] MEDS: risperiDONE 0.25 MG Tab PO SCH (15:52)
[2017-11-29] MEDS: Gabapentin 100 MG Cap PO SCH (15:52)
[2017-11-29] MEDS: Gabapentin 300 MG Cap PO SCH (20:58)
[2017-11-29] MEDS: Sodium Chloride 0.9% 10 ML Syringe FLUSH PRN (21:02)
[2017-11-29] MEDS: LORazepam 0.5 MG Tab PO PRN (21:04)
[2017-11-30] MEDS: Piperacillin/Tazobactam 3.375 GM in Sodium Chloride 0.9% 100 ML IV SCH ×2 (02:15→10:15)
[2017-11-30] MEDS: Morphine 2 MG/ML Syringe IVPUSH PRN ×7 (02:19→14:50)
[2017-11-30] MEDS: Sodium Chloride 0.9% 10 ML Syringe FLUSH PRN ×2 (10:13→19:15)
[2017-11-30] MEDS: OLANZapine 5 MG Tab PO SCH (10:19)
[2017-11-30] MEDS: Metoprolol Tartrate 25 MG Tab PO SCH ×2 (10:19→20:05)
[2017-11-30] MEDS: Carbidopa/Levodopa 25-250 MG Tab PO SCH ×4 (10:19→20:05)
[2017-11-30] MEDS: Dextran 70/Hypromellose/PF Ophth Soln 0.9 ML UD EYEBOTH SCH ×3 (10:19→20:06)
[2017-11-30] MEDS: LORazepam 0.5 MG Tab PO PRN (10:24)
[2017-11-30] MEDS: Atropine 1% Ophth Soln 5 ML BOTTLE SL PRN ×2 (10:25→19:23)
--- NOTE | 2017-11-30 11:10 | PN ---
Progress Note for CARLY DESOUZA Date: 11/30/2017 Room #: VM.217 SUBJECTIVE: This is hospital day #7 on an 87-year-old admitted with acute hypoxic respiratory failure due to a severe right lower lobe and right middle lobe pneumonia. She is continued to be hypoxic. She is on comfort cares, but did want to continue antibiotics for her full treatment as her daughter is traveling today from [place]. She has been hallucinating some asking for people that were either there the night before asking for the wrong name, but she is more alert this morning per her son. She did get some morphine around 6 a.m. She had 10 mg since yesterday. She has been afebrile. She is not in any pain, but she continues to be short of breath and cough. She states a little bit, but her son states a lot. He is giving her some thin liquids, coffee or coke for her comfort and requests about every 10-15 minutes. OBJECTIVE: Vital signs: Her temperature is 98.3, pulse 72, blood pressure 155/53, respiratory rate 16, O2 98 on 5 L oxygen mask. General: She is in no acute distress. Heart: Regular rate and rhythm with murmur, less tachycardic than yesterday. Lungs: Sounds are decreased over the right lung, but more air movement today with rhonchi noted. Left lung is clear. Abdomen: Nondistended. Positive bowel sounds. Extremities: No edema. Mental Status: She is alert. She is answering questions. When I told her Dr. Azul was coming in tomorrow, she said "oh good," so she seems to still be mentating around her baseline. ASSESSMENT AND PLAN: 1. Acute hypoxic respiratory failure secondary to right middle lobe and right lower lobe pneumonia, likely aspiration. 2. Right middle lobe and right lower lobe pneumonia due to aspiration. Cultures have been negative. She had no MRSA. 3. Dementia with delirium, seems to be stable. She is unable to take most of her home medications. We will continue to offer them as able. 4. Parkinson disease. Sinemet is ordered but has not always been able to be given. 5. Chronic pain, on a fentanyl patch. 6. Essential hypertension. Blood pressure up slightly, off home medications. We will continue to monitor. 7. Hypernatremia, had resolved with fluids. Fluids are now stopped and we did stop lab monitoring. 8. Palliative care. PLAN: At this point, the patient will continue with her last dose of Zosyn this morning. Discussed with her and her son that she has completed a 7-day course. We will continue supportive cares with oxygen, but we will also continue morphine for comfort. She does have Ativan available for agitation and did take a dose last evening around 9 p.m. We will change that to IV if needed. Family is due to arrive later today. They do understand that this could potentially just be a few days. However, she is not significantly worsening just really failing to get much better. Without the oxygen I think things would get worse more quickly. However, this is a comfort measure for her as well. The patient is now exceeded well beyond 96 hours due to her severe pneumonia and desire for no aggressive treatments and receiving now active comfort cares with regular doses of IV morphine. Likely we may transition her over to swing bed for end-of-life cares when the social welfare research worker returns tomorrow. I will update Dr. Azul as well. No DVT prophylaxis due to end-of-life care. MKA: 11/30/2017 08:45:44 MODL: 11/30/2017 11:04:17 /[id number]
[2017-11-30] MEDS: Morphine Oral Concentrate 20 MG/ML 30 ML Bottle SL SCH ×2 (15:32→22:11)
[2017-11-30] MEDS: HYDROmorphone 1 MG/ML Syringe IVPUSH PRN ×2 (15:54→19:18)
[2017-11-30] MEDS: LORazepam 2 MG/ML MDV IVPUSH PRN (19:17)
[2017-11-30] MEDS: Gabapentin 300 MG Cap PO SCH (20:05)
[2017-12-01] MEDS: Morphine Oral Concentrate 20 MG/ML 30 ML Bottle SL SCH ×2 (03:52→09:00)
[2017-12-01] MEDS: HYDROmorphone 1 MG/ML Syringe IVPUSH PRN (03:53)
[2017-12-01 04:37] VITALS: BP 102/56
[2017-12-01] MEDS: Atropine 1% Ophth Soln 5 ML BOTTLE SL PRN (04:52)
[2017-12-01] MEDS: LORazepam 2 MG/ML MDV IVPUSH PRN (06:00)
[2017-12-01] MEDS: Carbidopa/Levodopa 25-250 MG Tab PO SCH ×2 (08:00)
[2017-12-01] MEDS: Dextran 70/Hypromellose/PF Ophth Soln 0.9 ML UD EYEBOTH SCH (08:00)
[2017-12-01] MEDS: Metoprolol Tartrate 25 MG Tab PO SCH (08:00)
[2017-12-01] MEDS: OLANZapine 5 MG Tab PO SCH (08:00)
[2017-12-01] MEDS: fentaNYL 12 MCG/HR Transdermal Patch TRDERM SCH (08:00)
--- NOTE | 2017-12-01 22:29 | PCM.DCSUM1 ---
Discharge Summary - Hospital Course Free Text/Narrative:: 87 yo admitted on 11/24 with a severe pneumonia to the right middle and lower lobe with fever, hypoxia, and leukocytosis. She continue to cough and was SOB. She was initiated on IV zosyn due to concerns for aspiration. Blood cultures were negative. She had poor oral intake so continue with IV antibiotics. Her son arrived and decision was made to focus on comfort measures but the patient wanted to continue with antibiotics until her daughter arrived. She was continued on acute cares past 96 hrs due to the severity of her condition requiring 10L of oxygen and then needing regular sublingual and eventually IV dilaudid and ativen for her comfort. She did not want a transfer to a higher level care as aggressive medical treatments like feeding tubes were not desired. Repeat CXR did not show worsening however she did not improve during her stay. She was having difficulty with swallowing and was seen by speech and thickened liquids recommended however she refused thickened liquids and per her requests for comfort was allowed to have things like code and coffee which were given to her in small amounts by family. She become hypernatremic and was treated with 1/2 NS. Lab work was discontinued when she went on comfort cares. She the morning of 12/01/17 with family at bedside. NO exam was performed by myself on this date. - Discharge Data Discharge Date: 12/01/17 Discharge Disposition: 20 Condition: Good - Discharge Diagnosis/Problem(s) (1) Acute respiratory failure with hypoxia SNOMED Code(s): 67932973 ICD Code: J96.01 - ACUTE RESPIRATORY FAILURE WITH HYPOXIA Status: Acute Priority: High (2) Cognitive impairment SNOMED Code(s): 747764114 ICD Code: R41.89 - OTH SYMPTOMS AND SIGNS W COGNITIVE FUNCTIONS AND AWARENESS Status: Chronic Priority: Medium (3) Aspiration pneumonia SNOMED Code(s): 349204213 ICD Code: J69.0 - PNEUMONITIS DUE TO INHALATION OF FOOD AND VOMIT Status: Acute Priority: High Qualifiers: Aspiration pneumonia type: unspecified Laterality: right Lung location: middle lobe of lung Qualified Code(s): J69.0 - Pneumonitis due to inhalation of food and vomit (4) Anxiety SNOMED Code(s): 63026906 ICD Code: F41.9 - ANXIETY DISORDER, UNSPECIFIED Status: Chronic Priority : Low (5) Asthma SNOMED Code(s): 116118352 ICD Code: J45.909 - UNSPECIFIED ASTHMA, UNCOMPLICATED Status: Chronic Priority: Low Qualifiers: Asthma severity: unspecified severity Asthma persistence: unspecified Asthma complication type: unspecified Qualified Code(s): J45.909 - Unspecified asthma, uncomplicated (6) Depression SNOMED Code(s): 54582577 ICD Code: F32.9 - MAJOR DEPRESSIVE DISORDER, SINGLE EPISODE, UNSPECIFIED Status: Chronic Priority: Low Qualifiers: Depression Type: unspecified Qualified Code(s): F32.9 - Major depressive disorder, single episode, unspecified (7) Hypertension SNOMED Code(s): 11845525 ICD Code: I10 - ESSENTIAL (PRIMARY) HYPERTENSION Status: Chronic Priority : Medium Qualifiers: Hypertension type: essential hypertension Qualified Code(s): I10 - Essential (primary) hypertension (8) Parkinson disease SNOMED Code(s): 16709377 ICD Code: G20 - PARKINSON'S DISEASE Status: Chronic Priority: Medium - Patient Summary/Data Consults: Consultations 11/24/17 17:07 Consult to Speech Language Pathology [CASKET INSPECTOR Evaluation and Treatment] [CONS] Routine - Discharge Plan Home Medications: Home Meds Acetaminophen [Tylenol] 650 mg PO BID 05/28/15 [History] Albuterol [Proair HFA] 2 puff IH Q4HR PRN 05/28/15 [History] Bisacodyl [Ducodyl] 5 mg PO DAILY PRN 05/28/15 [History] Calcium Carbonate [Tums] 500 mg PO Q8H PRN 05/28/15 [History] Carbidopa/Levodopa [Carbidopa-Levodopa 25-250] 1 tab PO DAILY 05/28/15 [History] Carbidopa/Levodopa [Carbidopa-Levodopa 25-250] 1.5 tab PO TID 05/28/15 [History] Gabapentin [Neurontin] 200 mg PO DAILY 05/28/15 [History] Gabapentin [Neurontin] 300 mg PO BEDTIME 05/28/15 [History] L.acidoph,Paracasei, B.lactis [Probiotic] 1 cap PO DAILY 05/28/15 [History] Losartan Potassium 100 mg PO DAILY 05/28/15 [History] Metoprolol Tartrate 25 mg PO BID 05/28/15 [History] Potassium Chloride 8 meq PO DAILY 05/28/15 [History] Pramipexole [Mirapex] 0.5 mg PO BEDTIME 05/28/15 [History] Sennosides/Docusate Sodium [Senna S Tablet] 2 tab PO DAILY 05/28/15 [History] amLODIPine [Norvasc] 10 mg PO DAILY 05/28/15 [History] Ondansetron [Zofran ODT] 4 mg PO Q8H PRN 11/20/16 [History] risperiDONE [Risperdal] 0.125 mg PO DAILY 11/20/16 [History] Acetaminophen [Non-Aspirin] 650 mg PO Q4H PRN 11/24/17 [History] Carboxymethyl/Gly/Poly80/Pf [Refresh Optive Advanced Drops] 1 drop EYEBOTH TID 11/24/17 [History] Cholecalciferol (Vitamin D3) [Vitamin D3] 2,000 unit PO DAILY 11/24/17 [History] Cyanocobalamin (Vitamin B-12) [Cyanocobalamin Injection] 1,000 mcg IM Q30D 11/24 [History] Escitalopram Oxalate 10 mg PO DAILY 11/24/17 [History] Furosemide 80 mg PO DAILY 11/24/17 [History] Loperamide [Imodium] 2 mg PO ASDIRECTED 11/24/17 [History] Menthol [Zim's Max-Freeze] 1 applic TOP Q8H PRN 11/24/17 [History] Mirabegron [Myrbetriq] 25 mg PO DAILY 11/24/17 [History] Mirtazapine [Remeron] 15 mg PO BEDTIME 11/24/17 [History] Nystatin 1 applic TOP Q12H PRN 11/24/17 [History] OLANZapine [ZyPREXA] 5 mg PO DAILY 11/24/17 [History] Omeprazole Magnesium [Prilosec Otc] 20 mg PO DAILY 11/24/17 [History] fentaNYL [Duragesic] 12 mcg TRDERM Q72H 11/24/17 [History] - Discharge Summary/Plan Comment DC Time >30 min.: No - Patient Data Vitals - Most Recent: Last Vital Signs Temp 96.2 F 12/01/17 04:35 Pulse 50 L 12/01/17 04:35 Resp 16 12/01/17 04:35 BP 102/56 L 12/01/17 04:35 Pulse Ox 85 L 12/01/17 04:35 Weight - Most Recent: 44.407 kg I&O - Last 24 hours: Intake & Output 12/01/17 12/01/17 12/01/17 06:59 14:59 22:59 Intake Total 0 Balance 0 Med Orders - Current: Current Medications Discontinued Medications Acetaminophen (Tylenol) 650 mg PO Q4H PRN PRN Reason: Pain Last Admin: 11/26/17 17:04 Dose: 650 mg Albuterol (Proventil Neb Soln) 2.5 mg NEB Q4H PRN PRN Reason: Shortness of Breath Artificial Tears (Tears Naturale Free) 1 each EYEBOTH TID [facility] Last Admin: 12/01/17 08:00 Dose: Not Given Atropine Sulfate (Atropine 1% Ophth Soln) 0 ml SL Q2H PRN PRN Reason: other Last Admin: 12/01/17 04:52 Dose: 1 ml Carbidopa/Levodopa (Sinemet 25-250 Mg) 1 tab PO DAILY [facility] Last Admin: 12/01/17 08:00 Dose: Not Given Carbidopa/Levodopa (Sinemet 25-250 Mg) 1.5 tab PO TID [facility] Last Admin: 12/01/17 08:00 Dose: Not Given Ceftriaxone Sodium (Rocephin) 1 gm IM ONETIME ONE Stop: 11/25/17 08:27 Last Admin: 11/25/17 09:43 Dose: Not Given Citalopram Hydrobromide (Celexa) 20 mg PO DAILY [facility] Last Admin: 11/29/17 15:52 Dose: Not Given Enoxaparin Sodium (Lovenox) 40 mg SUBCUT DAILY [facility] Last Admin: 11/29/17 15:52 Dose: Not Given Fentanyl (Duragesic) 12 mcg TRDERM Q72H [facility] Last Admin: 11/28/17 10:57 Dose: Not Given Fentanyl (Duragesic) 12 mcg TRDERM Q3D@0800 [facility] Last Admin: 12/01/17 08:00 Dose: Not Given Furosemide (Lasix) 20 mg IV ONETIME ONE Stop: 11/28/17 09:00 Last Admin: 11/28/17 09:25 Dose: 20 mg Gabapentin (Neurontin) 200 mg PO DAILY [facility] Last Admin: 11/29/17 15:52 Dose: Not Given Gabapentin (Neurontin) 300 mg PO BEDTIME [facility] Last Admin: 11/30/17 20:05 Dose: Not Given Hydromorphone HCl (Dilaudid) 1 mg IVPUSH Q1H PRN PRN Reason: Dyspnea Last Admin: 12/01/17 03:53 Dose: 1 mg Sodium Chloride (Normal Saline) 1,000 mls @ 1,000 mls/hr IV .BOLUS ONE Stop: 11/24/17 11:34 Last Admin: 11/24/17 11:11 Dose: 1,000 mls/hr Piperacillin Sod/Tazobactam (Sod 3.375 gm/ Sodium Chloride) 100 mls @ 200 mls/ hr IV ONETIME ONE Stop: 11/24/17 12:10 Last Admin: 11/24/17 11:42 Dose: 200 mls/hr Sodium Chloride (Normal Saline) 1,000 mls @ 100 mls/hr IV ASDIRECTED [facility] Last Admin: 11/24/17 22:40 Dose: 100 mls/hr Piperacillin Sod/Tazobactam (Sod 3.375 gm/ Sodium Chloride) 100 mls @ 200 mls/ hr IV Q8H [facility] Last Admin: 11/24/17 13:28 Dose: Not Given Piperacillin Sod/Tazobactam (Sod 3.375 gm/ Sodium Chloride) 100 mls @ 25 mls/ hr IV Q8H [facility] Last Admin: 11/25/17 04:33 Dose: Not Given Piperacillin Sod/Tazobactam (Sod 3.375 gm/ Sodium Chloride) 100 mls @ 25 mls/ hr IV Q8H [facility] Stop: 11/30/17 13:00 Last Admin: 11/30/17 10:15 Dose: 25 mls/hr Sodium Chloride (Sodium Chloride 0.45%) 1,000 mls @ 50 mls/hr IV ASDIRECTED [facility] Last Admin: 11/27/17 21:23 Dose: 100 mls/hr Lorazepam (Ativan) 0.5 mg PO Q2H PRN PRN Reason: Agitation Last Admin: 11/30/17 10:24 Dose: 0.5 mg Lorazepam (Ativan) 1 mg IVPUSH Q4H PRN PRN Reason: Agitation Last Admin: 12/01/17 06:00 Dose: 1 mg Metoprolol Tartrate (Lopressor) 25 mg PO BID [facility] Last Admin: 12/01/17 08:00 Dose: Not Given Mirtazapine (Remeron) 15 mg PO BEDTIME [facility] Last Admin: 11/28/17 20:08 Dose: Not Given Morphine Sulfate (Morphine) 1 mg IVPUSH Q2H PRN PRN Reason: Dyspnea Last Admin: 11/29/17 14:17 Dose: 1 mg Morphine Sulfate (Morphine) 2 mg IVPUSH Q1H PRN PRN Reason: Dyspnea Last Admin: 11/30/17 14:50 Dose: 2 mg Morphine Sulfate (Morphine) Confirm Administered Dose 2 mg .ROUTE .STK-MED ONE Stop: 11/29/17 15:18 Last Admin: 11/29/17 15:51 Dose: Not Given Morphine Sulfate (Morphine 20 Mg/Ml Soln) 15 mg SL Q6H [facility] Last Admin: 12/01/17 09:00 Dose: Not Given Olanzapine (Zyprexa) 5 mg PO DAILY [facility] Last Admin: 12/01/17 08:00 Dose: Not Given Risperidone (Risperidal) 0.125 mg PO DAILY [facility] Last Admin: 11/29/17 15:52 Dose: Not Given Sodium Chloride (Saline Flush) 10 ml FLUSH ASDIRECTED PRN PRN Reason: Keep Vein Open Last Admin: 11/30/17 19:15 Dose: 10 ml Sodium Chloride (Saline Flush) 10 ml FLUSH ASDIRECTED PRN PRN Reason: Keep Vein Open *Q Meaningful Use (DIS) - VTE *Q VTE Criteria *Q: - Stroke *Q Stroke Criteria *Q: - AMI *Q AMI Criteria *Q:
== END 2017-12-01 10:00 | disposition expired | DRG 177 ==
LOC: VM.ED 10:12 → VM.MS 11:44
PROVIDERS: ADMIT Internal Medicine; ATTEND Family Medicine
DX: J18.9 Pneumonia, unspecified organism (principal); J69.0 Pneumonitis due to inhalation of food and vomit; E78.00 Pure hypercholesterolemia, unspecified; J96.01 Acute respiratory failure with hypoxia; K59.09 Other constipation; E43 Unspecified severe protein-calorie malnutrition; E87.0 Hyperosmolality and hypernatremia; G30.9 Alzheimer's disease, unspecified; F03.90 Unspecified dementia, unspecified severity, without behavioral disturbance, psychotic disturbance, mood disturbance, and anxiety; F02.80 Dementia in other diseases classified elsewhere, unspecified severity, without behavioral disturbance, psychotic disturbance, mood disturbance, and anxiety; F32.9 Major depressive disorder, single episode, unspecified; F41.9 Anxiety disorder, unspecified; G20 Parkinson's disease; D64.9 Anemia, unspecified; M19.90 Unspecified osteoarthritis, unspecified site; G89.29 Other chronic pain; N28.9 Disorder of kidney and ureter, unspecified; Z51.5 Encounter for palliative care; R41.0 Disorientation, unspecified; R13.10 Dysphagia, unspecified; R41.89 Other symptoms and signs involving cognitive functions and awareness; J45.909 Unspecified asthma, uncomplicated; I10 Essential (primary) hypertension; R32 Unspecified urinary incontinence; R39.15 Urgency of urination; E53.8 Deficiency of other specified B group vitamins; H35.30 Unspecified macular degeneration; Z88.8 Allergy status to other drugs, medicaments and biological substances; Z91.041 Radiographic dye allergy status; Z91.013 Allergy to seafood; Z79.899 Other long term (current) drug therapy
CPT/HCPCS: 36415; 71010; 80053; 83605; 83735; 83880; 84100; 85025; 85610; 86140; 87040 ×2; 87804 ×2; 93005; 96361; 96365; 99285; J2543; J7030 ×2; J7050; 80048; 84484; 92526-GN; 92610-GN; 94760; 99283-GF; A9270-GY; J1170; J1650; J1940; J2060; J2270